=== PATIENT | male | born 1995 | race Caucasian/White ===

== ENCOUNTER 2018-10-09 16:02 | Outpatient (REF) | payer BC, SELFPAY ==
[2018-10-09 22:02] LABS: HCT 47.6 % (40.0-50.0); HGB 16.8 g/dL (13.5-17.5); Mean Corp. HGB Concentration 35.3 g/dL (32.0-36.0); Mean Corpuscular Hemoglobin 29.7 pg (27.0-33.0); Mean Corpuscular Volume 84.1 fL (80-95); Mean Platelet Volume 10.8 fL (8.0-11.0); Platelet Count 303 x1000/uL (130-400); RBC 5.66 m/cumm (4.50-6.00); RBC Distribution Width 12.1 % (11.8-14.1); White Blood Cell Count 9.36 k/cumm (4.4-10.8)
[2018-10-09 23:10] LABS: ALT 33 U/L (12-78); AST 24 U/L (15-37); Albumin 4.8 g/dL (3.4-5.0); Alkaline Phosphatase 83 U/L (46-116); Anion Gap 12.7 mmol/L (3-11); BUN 17 mg/dL (7-18); Bilirubin, Total 0.6 mg/dL (0.2-1.0); CO2 25.3 mmol/L (21.0-32.0); CREATININE 0.86 mg/dL (0.70-1.30); Calcium 9.6 mg/dL (8.5-10.1); Calculated LDL 168 mg/dL; Chloride 101 mmol/L (98-107); Cholesterol 244 mg/dL (50-200); Glucose 85 mg/dL (70-100); HDL Cholesterol 69 mg/dL (40-60); Potassium 4.7 mmol/L (3.5-5.1); Sodium 139 mmol/L (136-145); TSH 2.86 uIU/mL (0.358-3.74); Triglyceride 37 mg/dL (30-150); Vitamin B12 304 pg/mL (193-986)
== END 2018-10-09 16:22 ==
LOC: NCHCN 16:02
PROVIDERS: PCP Student in an Organized Health Care Education/Training Program; Visit Provider Registered Nurse
DX: G47.00 Insomnia, unspecified (principal); F31.9 Bipolar disorder, unspecified
CPT/HCPCS: 80053; 80061; 82306; 83721; 85027; 82607; 84443

== ENCOUNTER 2018-11-26 11:02 | Outpatient (REF) | payer BC, SELFPAY ==
[2018-11-26 21:25] LABS: Lithium 0.55 mmol/L (0.60-1.20)
== END 2018-11-26 11:22 ==
LOC: NCHCN 11:02
PROVIDERS: PCP Registered Nurse; Visit Provider Nurse Practitioner Family
DX: F31.60 Bipolar disorder, current episode mixed, unspecified (principal); Z51.81 Encounter for therapeutic drug level monitoring
CPT/HCPCS: 80178

== ENCOUNTER 2021-06-10 13:39 | Outpatient (REF) | payer MEDICAID, SELFPAY ==
[2021-06-10 20:40] LABS: HGB 15.3 g/dL (13.5-17.5); MCH 29.7 pg (27.0-33.0); MCV 87.4 fL (80-95); MPV 10.1 fL (8.0-11.0); Platelet Count 246 10^3/uL (130-400); RBC 5.15 10^6/uL (4.36-5.78); RDW 11.2 % (11.8-14.1); WBC 7.34 10^3/uL (4.4-10.8)
[2021-06-10 21:01] LABS: ALT 29 U/L (16-63); AST 13 U/L (15-37); Albumin 4.3 g/dL (3.4-5.0); Alkaline Phosphatase 60 U/L (46-116); BUN 14 mg/dL (7-18); Bilirubin, Total 0.3 mg/dL (0.2-1.0); CREATININE 0.8 mg/dL (0.70-1.30); Calcium 8.9 mg/dL (8.5-10.1); Calculated LDL 87 mg/dL (<100); Chloride 104 mmol/L (98-107); Cholesterol 158 mg/dL (<200); Glucose 94 mg/dL (74-106); HDL Cholesterol 53 mg/dL (40-60); Potassium 4.6 mmol/L (3.5-5.1); Sodium 140 mmol/L (136-145); TSH 1.71 uIU/mL (0.36-3.74); Total Protein 7.1 g/dL (6.4-8.2); Triglyceride 90 mg/dL (<150)
[2021-06-13 06:25] LABS: Vitamin D 25 Total 34.5 ng/mL (30-100)
== END 2021-06-10 13:40 | disposition home or self-care (01) ==
LOC: NCHCN 13:39
PROVIDERS: PCP Registered Nurse; Visit Provider Registered Nurse
DX: F31.60 Bipolar disorder, current episode mixed, unspecified (principal)
CPT/HCPCS: 80053; 80061; 82306; 85027; 84443

== ENCOUNTER 2021-06-17 16:33 | Outpatient (REF) | payer MEDICAID, SELFPAY ==
[2021-06-20 10:52] LABS: HIV-1/2 Ag & Ab Screen Negative (Negative)
[2021-06-20 14:37] LABS: Chlamydia Result Negative (Negative); GC Result Negative (Negative)
== END 2021-06-17 16:34 | disposition home or self-care (01) ==
LOC: NCHCN 16:33
PROVIDERS: PCP Registered Nurse; Visit Provider Registered Nurse
DX: Z11.3 Encounter for screening for infections with a predominantly sexual mode of transmission (principal); Z11.4 Encounter for screening for human immunodeficiency virus [HIV]
CPT/HCPCS: 87389; 87491; 87591

== ENCOUNTER 2022-02-27 21:26 | Emergency (ER) | payer MEDICAID, SELFPAY ==
[2022-02-27 21:32] VITALS: BP 125/88; PULSE 62; RESP 16; TEMP 36.7; O2SAT 100
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
== END 2022-02-27 22:21 | disposition home or self-care (01) ==
PROVIDERS: Emergency Provider Physician Assistant; PCP Registered Nurse
DX: S71.112A Laceration without foreign body, left thigh, initial encounter (principal); W26.0XXA Contact with knife, initial encounter
CPT/HCPCS: 12001

== ENCOUNTER 2023-07-02 17:48 | Emergency (ER) | payer MEDICAID, SELFPAY ==
[2023-07-02 17:52] VITALS: BP 148/78; PULSE 98; RESP 20; O2SAT 99
--- NOTE | 2023-07-02 18:11 | NUR.NOTE ---
Nursing Note: Allergies and medication history verified on [facility] portal
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
[2023-07-02 21:00] VITALS: PULSE 60; RESP 14
[2023-07-02] MEDS: diphenhydrAMINE 50 MG/ML VIAL IM (21:00)
[2023-07-02] MEDS: Haloperidol 5 MG/ML VIAL IM (21:00)
[2023-07-02] MEDS: LORazepam 2 MG/ML VIAL IM (21:00)
[2023-07-02 22:00] VITALS: PULSE 58; RESP 12
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
[2023-07-02 23:41] LABS: Abs Immature Grans 0.03 10^3/uL (0.0-0.06); Absolute Basophil Count 0.06 10^3/uL (0.0-0.2); Absolute Eosinophil Count 0.07 10^3/uL (0.0-0.7); Absolute Lymphocyte Count 2.38 10^3/uL (1.2-3.4); Absolute Monocyte Count 0.63 10^3/uL (0.1-0.8); Absolute Neutrophil Count 5.75 10^3/uL (1.2-6.7); Basophils % 0.7; Eosinophils % 0.8; Immature Grans % 0.3; Lymphocytes % 26.7; MCH 30.1 pg (27.0-33.0); MCV 86 fL (80-95); MPV 9.7 fL (8.0-11.0); Monocytes % 7.1; Neutrophils % 64.4; Platelet Count 194 10^3/uL (130-400); RBC 4.65 10^6/uL (4.36-5.78); RDW 11.7 % (11.8-14.1); RDW-SD 36.7 fL; WBC 8.92 10^3/uL (4.4-10.8)
[2023-07-03] VITALS (10 sets, daily range): BP systolic 121–139; BP diastolic 74–82; PULSE 55–68; RESP 12–16; TEMP 36.6–36.8; O2SAT 97–99
[2023-07-03 00:05] LABS: ALT 27 U/L (16-63); AST 41 U/L (15-37); Alkaline Phosphatase 65 U/L (46-116); Anion Gap 6.6 mmol/L (3-11); BUN 15 mg/dL (7-18); Bilirubin, Total 0.9 mg/dL (0.2-1.0); CO2 30.4 mmol/L (21.0-32.0); Calcium 8.9 mg/dL (8.5-10.1); Chloride 106 mmol/L (98-107); Estimated GFR 105.79 (mL/min/1.73m2); Glucose 91 mg/dL (74-106); Potassium 3.6 mmol/L (3.5-5.1); Sodium 143 mmol/L (136-145); TSH (W/Ref FT4) 3.38 uIU/mL (0.36-3.74); Total Protein 6.9 g/dL (6.4-8.2)
[2023-07-03 00:06] LABS: ETHANOL BLOOD < 3.0 mg/dL (<10)
[2023-07-03 00:17] LABS: Acetaminophen < 2 ug/mL (10-30); Salicylate < 2.8 mg/dL (<2.8)
[2023-07-03] MEDS: Midazolam 10 MG/2 ML VIAL NS (02:40)
[2023-07-03] MEDS: Haloperidol 5 MG/ML VIAL (02:40)
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
--- NOTE | 2023-07-03 07:42 | NUR.NOTE ---
Nursing Note: Observed pt moving, opened door to check on pt and he stated his feet were cold. Provided with blanked and covered feet. He answered thank you ma'am. This resume writer then requested finger to place sat probe on, and pt offered pointer finger nearest this resume writer. Restraints checked as well as cap refill and temp of extrems. He then removed sat probe after this resume writer left the room. No further needs at this time.
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
--- NOTE | 2023-07-03 09:15 | RT.EKG_ITS ---
APPROVED REPORT Exam: Resting ECG Reason for Exam: ASSESS QT, PSYCHOSIS Patient Location: E HR:46 bpm ECG Measurements Heart Rate 46 AXIS OK 136 P 70 QRSd 116 QRS 78 QT 473 T 89 QTc 415 Conclusion Sinus bradycardia...rate< 60 Probable left atrial enlargement...P >50mS, <-0.10mV V1 Incomplete right bundle branch block...QRSd >112, terminal axis(90,270) Borderline ST elevation, anterior leads...ST >0.15mV in V1-V4 nl qtc
--- NOTE | 2023-07-03 09:25 | NUR.NOTE ---
Nursing Note: When asked if he was hungry, pt nodded in the affirmative with eyes closed. When asked if he had a food preference or food allergies, he did not respond. A breakfast tray was ordered and once delivered was brought in to pt. He was sat up in the bed with retraints in place and offered a bite of breakfast. He declined to eat, stating I am hungry, but I want my mom's cooking. He was then offered juice and accepted, and drank the entire cup using a straw that was placed under the spit patel. He remained appropriate and respectful throughout the interaction, with eyes closed the entire time. He was then informed he could urinate at will as there was a condom cath in place, to which he indicated understanding. He then requested an additional blanket, which was provided. No further needs at this time.
[2023-07-03] MEDS: OLANZapine 10 MG VIAL 5 MG IM ×2 (09:49→10:22)
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
--- NOTE | 2023-07-03 09:55 | CMSP_ITS ---
Date of service: 07/03/23 Time of Service: 09:55 Care Management Safety Plan Status Status: Involuntary Reason for Wait Reason for Wait: Inpatient Admission Safety Plan Safety Plan: INVOLUNTARY FOR INPATIENT PSYCHIATRIC STABILIZATION. CM met with ED staff regarding the safety plan for Abraham. Per report, he is currently restrained, and continues to be aggressive toward staff. Awaiting second certification and transfer to an inpatient psychiatric facility. Safety plan has been established to meet the needs of the patient, and consideration of the care team, to adhere to patient goals, identify restrictions based on behavioral status, address nutrition, and determine allowed personal belongings, tools for hygiene and personal care. Determine level of activity including ambulation, level of supervision, visitors, and determine privileges based on behaviors and level of engagement by pt. SAFETY PLAN: 1. Will remain on SI/HI precautions. In Paper Clothes 2. Will remain in room under direct supervision of one-on-one staff at all times provided by [employer]; LESTER, STACKER carpet floor layer apprentice. 3. May have paper cups, plates, finger foods as well as a cardboard spoon 4. Follow [facility] Management of the Admitted Behavioral Health Patient policy. 5. Comfort bath system only. 6. No personal belongings 7. Visitors: no visitors at this time. 8. Activities: soft items at RN discretion 9. ?Bathroom privileges with supervision 10. Phone: May have incoming/outgoing calls from his mother, using hospital c ordless phone, at RN/provider discretion. 11. Due to INVOLUNTARY status, patient is being held at [facility] by the Department of Mental Health ([facility]) until 2nd certification by [facility] Psychiatrist can be perf ormed (within 24 hours). Staff will provide de-escalation support (CPI) as needed. If patient wishes to leave [facility], staff will contact [facility] Crisis Screener ([phone]) and On-Call Pay Agent ([phone]) as soon as possible. In the event of elopement, notify [place] [employer] ([phone]).Patient is currently involuntarily at [facility]. [facility] Frontline Panel Raiser Operator will continue seeking placement. Please contact the Table Saw Operator Pay Agent ([phone]) for any needed changes to Safety Plan. Safety plan has been provided to interdepartmental care team. Patient will be transported by [facility] at time of discharge.
[2023-07-03] MEDS: Water,Injection,Sterile 10 ML VIAL (10:22)
--- NOTE | 2023-07-03 10:37 | PDOC.CMPRO ---
Date of service: 07/03/23 Time of Service: 10:37 Care Management Progress Note Progress Note Text Progress Note Text: CM met with ED staff to discuss the safety plan and plan of care for Abraham. At that time he remained in restraints, and continues to be verbally aggressive to staff, as well as spitting, and he is not taking medications voluntarily at this time. His mother called to check in on him, but due to his current state, and that he is sleeping, she was provided an update, but did not speak with Abraham. At that time phone calls were discussed; he will be permitted to talk with his mother over the phone once he is able to remain calm and safe, at RN and provider discretion. Per report, Abraham has a psychiatric history, significant for two previous hospitalizations in psychiatric facilities. Currently awaiting second certification for emergency evaluation. CM will continue to follow.
--- NOTE | 2023-07-03 12:29 | NUR.NOTE ---
Nursing Note: [employer] officer in room at this time informing pt of court date and gave pt copy of info regarding court date.
[2023-07-03] MEDS: LORazepam 1 MG TAB 2 MG PO ×2 (15:03→19:15)
--- NOTE | 2023-07-03 15:36 | NUR.NOTE ---
Nursing Note: RN spoke with pt at this time. pt seems to be oriented at this time. rn asked if pt had any questions about the plan of treatment, pt states he understands the foreseeable plan of care at this time. pt ordered dinner and is displaying improved orientation at this time.
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
[2023-07-03] MEDS: Haloperidol 5 MG/ML VIAL IM/IV (22:11)
[2023-07-03] MEDS: Midazolam 2 MG/2 ML VIAL 5 MG IM (22:12)
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
--- NOTE | 2023-07-03 23:32 | ED.FU.B_ITS ---
Date of service: 07/03/23 Time of Service: 23:32 Follow Up Plan: Health community reinvestment act officer Lurdes called [facility]. The patient's second certification has been upheld.
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
--- NOTE | 2023-07-03 23:32 | W.ED.FU ---
Date of service: 07/03/23 Time of Service: 23:32 Follow Up Plan: Health community mental health worker Lurdes called [facility]. The patient's second certification has been upheld.
[2023-07-04] VITALS: RESP 16
--- NOTE | 2023-07-04 02:25 | NUR.NOTE ---
Nursing Note: PT awake, asking for blankets, pt told this nurse you don't know how to tell time, your stupid when asked why he was still tied up this nurse explained to the pt that he had an episode of aggressive behaviour the pt stated that was yesterday pt covered up with blankets, warm one given, the pt stated you didn't cover me the way I wanted, now get me another one. MD made aware of the pts activity and statements, security to stand by for medication administration
[2023-07-04] MEDS: Midazolam 10 MG/2 ML VIAL NS (02:35)
[2023-07-04] MEDS: OLANZapine 10 MG VIAL (02:35)
[2023-07-04 02:46] VITALS: PULSE 58; O2SAT 100
--- NOTE | 2023-07-04 03:54 | NUR.NOTE ---
Nursing Note: Pt resting, rr even and WNl, pt remains in 4 point. This nurse spoke with [place] from the state and given update, he states he will put in a requested to be placed as soon as available
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
[2023-07-04] MEDS: LORazepam 1 MG TAB 2 MG PO (10:28)
[2023-07-04] MEDS: OLANZapine 10 MG TAB PO (10:28)
[2023-07-04 10:31] LABS: Bilirubin Negative (Negative); Blood Negative (Negative); Clarity Clear (Clear); Glucose Negative (Negative); Ketones Trace mg/dL (Negative); Leukocyte Esterase Negative (Negative); Nitrite Negative (Negative); Specific Gravity 1.025 (1.005-1.025); Urobilinogen 0.2 mg/dL (Up to 0.2)
--- NOTE | 2023-07-04 10:58 | W.EDRSTF2F ---
Date of service: 07/04/23 Time of Service: 10:58 Restraint Face to Face Time of Face to Face 3rd Face to Face: Time of Face to Face: 10:58 Patient's Immediate Situation Requiring Restraints/Seclusion: Harm to Staff & Others Patient Response to Restraints: Remains Agitated and Restless Need for Continuation of Restraints Has Been Assessed: Restraints Continued
[2023-07-04 11:58] VITALS: BP 108/73; PULSE 83; RESP 14; TEMP 36.6; O2SAT 99
[2023-07-04 13:14] LABS: *AMPHETAMINES SCREEN URINE Negative (Negative); *BARBITURATES SCREEN URINE Negative (Negative); *BENZODIAZEPINES SCREEN URINE Positive (Negative); Cannabinoids THC Positive (Negative); Cocaine Screen,Urine Negative (Negative); METHADONE URINE SCREEN Negative (Negative); OPIATES URINE SCREEN Negative (Negative)
--- NOTE | 2023-07-04 13:18 | PDOC.CMPRO ---
Date of service: 07/04/23 Time of Service: 13:18 Care Management Progress Note Progress Note Text Progress Note Text: Abraham has been accepted for involuntary treatment at [facility]
[2023-07-04 13:19] LABS: Tricyclic Antidepressants Negative (Negative)
--- NOTE | 2023-07-04 13:22 | W.EDRSTF2F ---
Date of service: 07/04/23 Time of Service: 13:00 Restraint Face to Face Time of Face to Face 4th Face to Face: Time of Face to Face: 13:00 Patient's Immediate Situation Requiring Restraints/Seclusion: Harm to Staff & Others Patient Response to Restraints: Remains Agitated and Restless Need for Continuation of Restraints Has Been Assessed: Restraints Continued
--- NOTE | 2023-07-04 14:29 | NUR.NOTE ---
Nursing Note: pt notified of transport to [facility]. pt was upset that we did not notify his parents, although both of his parents were aware of the transfer. pt became more agitated and was attempting to pull out of his restraints and hold the bed rail as staff was trying to lower the rail. pt verbally consoled by security and pt released rail and was still attempting to reach out and grab door and wall while bed was being moved out of room. pt was compliant while the double cut sawyer applied handcuffs and removed violent restraints. pt became tearful at this time and care was handed off to the double cut sawyer.
== END 2023-07-04 14:23 ==
PROVIDERS: Student in an Organized Health Care Education/Training Program; Emergency Provider Emergency Medicine; PCP Registered Nurse
DX: F30.2 Manic episode, severe with psychotic symptoms (principal); I45.19 Other right bundle-branch block; F17.210 Nicotine dependence, cigarettes, uncomplicated; Z78.1 Physical restraint status
CPT/HCPCS: 00123; 80053; 80307; 82962; 93005; 96372; 99285; 80320; 80329; 81003; 84443; 85025; 93010; J1200; J1630; J2060; J2250; J2359